=== PATIENT | female | born 1955 | race American Indian/Alaskan Native ===

== ENCOUNTER 2019-05-07 11:18 | Emergency (ER) | payer OTHER, MEDICAID ==
[~2019-05-07] VITALS: Ht 154.9 cm; Wt 89.8 kg
[2019-05-07 11:18] VITALS: BP_SYST 100
[2019-05-07 11:45] LABS: BASOPHILS % (AUTO) 0.4 % (0.0-2.0); EOSINOPHILS # (AUTO) 0.1 K/uL (0.0-0.4); EOSINOPHILS % (AUTO) 0.6 % (0.0-4.0); HEMATOCRIT 43.6 % (36-48); HEMOGLOBIN 15.2 g/dL (12.0-16.0); LYMPHOCYTES # (AUTO) 1.3 K/uL (1.0-5.5); LYMPHOCYTES % (AUTO) 15.5 % (20.5-51.5); MEAN CORPUSCULAR HEMOGLOBIN 33 pg (27-31); MEAN CORPUSCULAR HGB CONC 35 % (32-36); MEAN CORPUSCULAR VOLUME 93 fL (79.0-98.0); MONOCYTES # (AUTO) 0.5 K/uL (0.0-1.0); MONOCYTES % (AUTO) 6.4 % (1.7-9.3); NEUTROPHILS # (AUTO) 6.6 K/uL (1.8-7.7); NEUTROPHILS % (AUTO) 77.1 % (40.0-70.0); PLATELET COUNT (AUTO) 262 K/uL (130-430); RED BLOOD CELL COUNT(AUTO) 4.67 MIL/uL (4.2-6.2); RED CELL DISTRIBUTION WIDTH 12.8 % (9.0-15.0); WHITE BLOOD COUNT (AUTO) 8.5 K/uL (4.8-10.8)
[2019-05-07 12:01] LABS: INR 0.9 (0.8-1.2); PROTHROMBIN TIME 9.2 SECS (9.5-12.5)
[2019-05-07 12:08] LABS: ALBUMIN 3.6 g/dL (3.4-4.8); CALCIUM 9.9 mg/dL (8.4-11.0); CREATININE 0.86 mg/dL (0.55-1.30); POTASSIUM 4.5 mmol/L (3.5-5.1); TOTAL BILIRUBIN 0.6 mg/dL (0.0-1.0)
[2019-05-07 13:15] VITALS: BP_SYST 105
== END 2019-05-07 13:15 | disposition home or self-care (01) ==
LOC: SED 11:18
DX: R07.89 Other chest pain (principal)
CPT/HCPCS: 36415; 71045; 80053; 83880; 84484; 85025; 85610-TC; 85730-TC; 93005; 99284

== ENCOUNTER 2019-12-31 12:58 | Emergency (ER) | payer MEDICAID, OTHER ==
[~2019-12-31] VITALS: Ht 157.5 cm; Wt 88.5 kg
[2019-12-31 13:13] VITALS: BP_SYST 150
--- NOTE | 2019-12-31 14:04 | NUR ---
BROUGHT BACK TO [facility] B[facility] AND REPORT GIVEN TO ISSAC
--- NOTE | 2019-12-31 14:05 | NUR ---
Patient arrived in the ED c/o bodyaches, headaches, cough, stuffy nose, nausea and fevers that started 2 days ago. Denied any chest pain or shortness of breath. Denied any chills or vomiting. Patient is alert and oriented x4, respirations even and unlabored, speaking in full sentences and ambulating with a steady gait. VSS, pain level 8/10. Informed of approximate wait time. Instructed to notify ED staff for any changes in condition or worsening of symptoms while waiting to be seen by a provider. Patient verbalized understanding.
--- NOTE | 2019-12-31 14:07 | NUR ---
DR VASQUEZ AT BEDSIDE FOR EVALUATION
--- NOTE | 2019-12-31 14:18 | NUR ---
Patient given written and verbal discharge instructions and verbalizes understanding. ER MD discussed with patient the results and treatment provided. Patient in stable condition. ID arm band removed. Rx of Tamiflu, Motrin and [place] given. Patient educated on pain management and to follow up with PMD. Pain Scale 0/10. Opportunity for questions provided and answered. Medication side effect fact sheet provided.
[2019-12-31 14:20] VITALS: BP_SYST 150
== END 2019-12-31 14:18 | disposition home or self-care (01) ==
LOC: SED 12:58
DX: J10.1 Influenza due to other identified influenza virus with other respiratory manifestations (principal)
CPT/HCPCS: 36415; 86710; 99283

== ENCOUNTER 2022-04-27 10:19 | Emergency (ER) | payer OTHER, MEDICAID ==
[~2022-04-27] VITALS: Ht 157.5 cm; Wt 96.6 kg
--- NOTE | 2022-04-27 10:19 | NUR ---
BROUGHT TO OUTSIDE AMBULANCE RAMP, TRIAGED AND WILL ASSUME CARE.
[2022-04-27 10:20] VITALS: BP_SYST 131
--- NOTE | 2022-04-27 10:25 | NUR ---
PT STATES THAT SHE HAS BEEN GETTING HEADACHES AND CHILLS FOR LAST 2 DAYS, STATES LAST TIME THIS HAPPENED, SHE WAS +FOR INFLUENZA A AND B. STATES SHE IS NOT VACCINATED FOR COVID.
--- NOTE | 2022-04-27 11:29 | NUR ---
DR GALVAN OUT TO SPEAK WITH PT ABOUT TEST RESULTS.
[2022-04-27] MEDS ORDERED: OSEL75CA PO (11:32)
[2022-04-27] MEDS ORDERED: IBUP-1969 PO (11:32)
--- NOTE | 2022-04-27 11:41 | NUR ---
Patient given written and verbal discharge instructions and verbalizes understanding. ER MD discussed with patient the results and treatment provided. Patient in stable condition. ID arm band removed. Rx of TAMIFLU, IBUPROFEN given. Patient educated on pain management and to follow up with PMD. Pain Scale 0/10. Opportunity for questions provided and answered. Medication side effect fact sheet provided.
== END 2022-04-27 11:41 | disposition home or self-care (01) ==
LOC: SED 10:19
DX: U07.1 COVID-19 (principal); J10.1 Influenza due to other identified influenza virus with other respiratory manifestations
CPT/HCPCS: 36415; 99283